=== PATIENT | male | born 1950 | race Caucasian/White ===

== ENCOUNTER 2017-07-26 20:21 | Emergency (ER) | payer MEDICARE, BC ==
[~2017-07-26] VITALS: Ht 182.9 cm; Wt 86.2 kg
--- NOTE | 2017-07-26 21:04 | NUR ---
patient shows no acute distress. patient here for FLU clearance in order to visit his father at a local [facility].
--- NOTE | 2017-07-26 21:52 | NUR ---
Patient discharged to home in stable conditon. Written and verbal after care instructions given. Patient verbalizes understanding of instructions. Ambulated from ER with stable gait. All belongings with patient
[2017-07-26 21:54] VITALS: BP 132/87
== END 2017-07-26 21:55 | disposition home or self-care (01) ==
LOC: ER 20:24
DX: J11.1 Influenza due to unidentified influenza virus with other respiratory manifestations (principal); I10 Essential (primary) hypertension; Z88.1 Allergy status to other antibiotic agents
CPT/HCPCS: 87400; A4663

== ENCOUNTER 2017-10-16 08:44 | Inpatient (IN) | payer MEDICARE, BC ==
[~2017-10-16] VITALS: Ht 182.9 cm; Wt 79.4 kg
--- NOTE | 2017-10-16 09:01 | NUR ---
PT IS IN ROOM #1B. DR MONGE EVALUATED THE PT.
[2017-10-16 09:12] LABS: BASOPHILS # (AUTO) 0.1 K/uL (0.0-8.0); BASOPHILS % (AUTO) 0.9 % (0.0-2.0); EOSINOPHILS # (AUTO) 0.1 K/uL (0.0-0.7); HEMATOCRIT 45.4 % (36.7-47.1); HEMOGLOBIN 15.4 g/dL (12.5-16.3); LYMPHOCYTES # (AUTO) 1.8 K/uL (20.0-40.0); MEAN CORPUSCULAR HEMOGLOBIN 30.1 uug (23.8-33.4); MEAN CORPUSCULAR HGB CONC 34 g/dL (32.5-36.3); MEAN CORPUSCULAR VOLUME 88.4 fL (73.0-96.2); MONOCYTES # (AUTO) 0.5 K/uL (2.0-10.0); MONOCYTES % (AUTO) 7.4 % (0.0-11.0); NEUTROPHILS # (AUTO) 4.6 K/uL (1.8-8.9); NEUTROPHILS % (AUTO) 64.7 % (38.5-71.5); PLATELET COUNT (AUTO) 199 K/uL (152-348); RED BLOOD CELL COUNT(AUTO) 5.14 MIL/uL (4.06-5.63); WHITE BLOOD COUNT (AUTO) 7.1 K/uL (3.6-10.2)
[2017-10-16] MEDS ORDERED: AMIODARONE HCL IV 150 MG in IV DEXTROSE 5% 100 ML IV ONE (09:15)
[2017-10-16] MEDS ORDERED: IV NORMAL SALINE 500 ML BAG IV ONE (09:15)
[2017-10-16 09:22] LABS: POTASSIUM 3.9 mmol/L (3.5-5.1)
[2017-10-16 09:28] LABS: BILIRUBIN,DIRECT 0.1 mg/dL (0.0-0.2); BILIRUBIN,TOTAL 0.7 mg/dL (0.2-1.0); TOTAL PROTEIN, SERUM 7.7 g/dL (6.4-8.2)
--- NOTE | 2017-10-16 10:59 | NUR ---
REPORT WAS GIVEN TO RN SURAJ. PT WAS TRANSFERED TO [facility] ROOM #205.
[2017-10-16] MEDS: AMIODARONE HCL IV 900 MG in IV DEXTROSE 5% 482 ML IV PRN ×3 (11:01→17:17)
--- NOTE | 2017-10-16 11:53 | NUR ---
ADMITTED FROM HOME A 67 YO MALE WITH CC OF PALPITATION AWAKE ALERT AND VERBALLY RESPONSIVE, DENIES CH OR SOB. PLACE ON MONITOR REMAINS SR. RATE 75/MIN. DR CEDENO NOTIFIED OF ADMISSION. INITIAL ASSESSMENT INITIATED. CONTINUE WITH [facility] MONITORING
[2017-10-16 12:40] VITALS: BP 136/94
[2017-10-16 15:09] VITALS: BP 135/85
[2017-10-16] MEDS ORDERED: MAGNESIUM HYDROXIDE 30 ML LIQUID UDC PO PRN (15:45)
[2017-10-16] MEDS ORDERED: HYDROCODONE/APAP 5-325MG TABLET PO PRN (15:45)
[2017-10-16] MEDS ORDERED: ZOLPIDEM 5 MG TABLET PO PRN (15:45)
[2017-10-16] MEDS ORDERED: ONDANSETRON 4 MG/2 ML VIAL IV PRN (15:45)
[2017-10-16] MEDS: ACETAMINOPHEN 325 MG TABLET PO PRN ×2 (16:09→20:39)
[2017-10-16] MEDS ORDERED: PATIENT MAY USE OWN MED- MD OK PO SCH (16:45)
[2017-10-16] MEDS ORDERED: RIVAROXABAN 10 MG TABLET PO SCH (18:00)
[2017-10-16] MEDS ORDERED: DILTIAZEM HCL 30 MG TABLET PO SCH (18:00)
--- NOTE | 2017-10-16 18:54 | NUR ---
SEEN BY DR CRAWFORD SAID CONTINUE [facility] OBSERVATION AND AMIODARONE DRIP PER PROTOCOL. PATIENT REMAINS ON SR
--- NOTE | 2017-10-16 20:27 | NUR ---
Patient awake in bed, no SOB denies chest pain. Sinus rhythm on the monitor w/ HR 69 bpm. Afebrile & w/ stable vital signs. Tolerating Amiodarone drip 0.5 mg/min (16.66 ml/hr). Patient c/o headache. Tylenol 650 mg po adm. Will continue to monitor.
[2017-10-16] MEDS: METOPROLOL TARTRATE 25 MG TABLET PO SCH (20:39)
[2017-10-16 21:04] VITALS: BP 120/80
--- NOTE | 2017-10-17 | NUR ---
No significant change, vital signs stable. Sinus rhythm on the monitor.
[2017-10-17 00:58] VITALS: BP 125/86
[2017-10-17 05:24] VITALS: BP 142/93
[2017-10-17 06:56] LABS: WHITE BLOOD COUNT (AUTO) 8.8 K/uL (3.6-10.2)
[2017-10-17 06:57] LABS: BASOPHILS % (AUTO) 0.4 % (0.0-2.0); EOSINOPHILS # (AUTO) 0.2 K/uL (0.0-0.7); EOSINOPHILS % (AUTO) 1.9 % (0.0-7.0); HEMATOCRIT 41.6 % (36.7-47.1); HEMOGLOBIN 14.1 g/dL (12.5-16.3); LYMPHOCYTES # (AUTO) 1.7 K/uL (20.0-40.0); LYMPHOCYTES % (AUTO) 19.2 % (20.5-51.5); MEAN CORPUSCULAR HEMOGLOBIN 30.1 uug (23.8-33.4); MEAN CORPUSCULAR HGB CONC 34 g/dL (32.5-36.3); MEAN CORPUSCULAR VOLUME 88.6 fL (73.0-96.2); MONOCYTES # (AUTO) 0.6 K/uL (2.0-10.0); MONOCYTES % (AUTO) 6.4 % (0.0-11.0); NEUTROPHILS # (AUTO) 6.4 K/uL (1.8-8.9); NEUTROPHILS % (AUTO) 72.1 % (38.5-71.5); PLATELET COUNT (AUTO) 188 K/uL (152-348); RED BLOOD CELL COUNT(AUTO) 4.69 MIL/uL (4.06-5.63)
[2017-10-17] MEDS ORDERED: PANTOPRAZOLE SODIUM 40 MG TABLET.DR PO SCH (07:00)
[2017-10-17 07:13] LABS: THYROID STIMULATING HORMONE 4.434 mIU/mL (0.358-3.740)
[2017-10-17 07:14] LABS: BILIRUBIN,TOTAL 0.6 mg/dL (0.2-1.0); CREATININE 0.9 mg/dL (0.6-1.3); MAGNESIUM 2.1 mg/dL (1.8-2.4); POTASSIUM 4.1 mmol/L (3.5-5.1); TOTAL PROTEIN, SERUM 6.6 g/dL (6.4-8.2)
--- NOTE | 2017-10-17 07:15 | NUR ---
Patient remains asleep at this time. No signs of distress noted. Sinus rhythm on the monitor.
[2017-10-17 07:27] VITALS: BP 137/95
[2017-10-17] MEDS: METOPROLOL TARTRATE 25 MG TABLET PO SCH ×2 (08:15→08:29)
--- NOTE | 2017-10-17 08:30 | NUR ---
lopressor not given patient took own bp meds. will notify
[2017-10-17] MEDS ORDERED: ASPIRIN 81 MG TAB.CHEW PO SCH (09:00)
--- NOTE | 2017-10-17 11:35 | NUR ---
SEEN BY MACHINE PACKER TALKED TO PATIENT ABOUT PLAN OF CARE, SEE NOTES
[2017-10-17 11:43] VITALS: BP 147/93
[2017-10-17] MEDS ORDERED: LISINOPRIL 5 MG TABLET PO SCH (12:15)
[2017-10-17] MEDS ORDERED: LOSARTAN POTASSIUM 25 MG TABLET PO SCH (12:30)
[2017-10-17 12:43] VITALS: BP 147/93
[2017-10-17] MEDS ORDERED: RIVA10TA PO (13:39)
[2017-10-17] MEDS ORDERED: NEBI5TAB8 PO (13:39)
[2017-10-17] MEDS ORDERED: LOSA25TA3 PO (13:39)
[2017-10-17] MEDS ORDERED: ATOR10TA PO (13:39)
--- NOTE | 2017-10-17 13:39 | NUR ---
SEEN BY DR CEDENO WITH DC ORDERS.
--- NOTE | 2017-10-17 15:00 | NUR ---
DISCHARGED HOME STABLE WITH RX AND FOLLOW-UP INSTRUCTION
[2017-10-17] MEDS ORDERED: ATORVASTATIN 10 MG TABLET PO SCH (21:00)
== END 2017-10-17 15:00 | disposition home or self-care (01) | DRG 309 ==
LOC: ER 08:44 → TELE 11:00 → DOU 11:19 → TELE-TD 11:36
PROVIDERS: ADMIT Internal Medicine; ATTEND Internal Medicine
DX: I48.0 Paroxysmal atrial fibrillation (principal); D68.59 Other primary thrombophilia; Z91.14 Patient's other noncompliance with medication regimen; Z88.1 Allergy status to other antibiotic agents; E78.5 Hyperlipidemia, unspecified; I08.1 Rheumatic disorders of both mitral and tricuspid valves; I10 Essential (primary) hypertension; Z79.899 Other long term (current) drug therapy; E03.9 Hypothyroidism, unspecified
CPT/HCPCS: 36415; 70030-TC; 71045; 83735; 84100; 84443; 85025; 85730; 93005; 93307; A4663; J0282; J7030; J7060

== ENCOUNTER 2017-10-19 18:45 | Emergency (ER) | payer MEDICARE, BC ==
[~2017-10-19] VITALS: Ht 182.9 cm; Wt 86.2 kg
[~2017-10-19 18:45] MED LIST: ATOR10TA PO; LOSA25TA3 PO; NEBI5TAB8 PO; RIVA10TA PO
--- NOTE | 2017-10-19 19:40 | NUR ---
PATIENT REQUESTING FOR EVAL ON RIGHT AC BRUISE AND SWELLING. PATIENT STATES HAD IV ON RIGHT AC AND WAS REMOVED 2 DAYS AGO. SITE WITH NO SIGNS OF INFECTION.
--- NOTE | 2017-10-19 20:08 | NUR ---
Patient discharged to home in stable conditon. Written and verbal after care instructions given. Patient verbalizes understanding of instructions.
== END 2017-10-19 20:09 | disposition home or self-care (01) ==
LOC: ER 18:53
DX: I80.8 Phlebitis and thrombophlebitis of other sites (principal); I10 Essential (primary) hypertension; I48.91 Unspecified atrial fibrillation; Z88.1 Allergy status to other antibiotic agents; Z79.899 Other long term (current) drug therapy
CPT/HCPCS: A4663